=== PATIENT | female | born 1945 | race Caucasian/White ===

== ENCOUNTER 2020-06-22 12:39 | Emergency (ER) | payer MEDICARE, BC, SELFPAY ==
--- NOTE | ~2020-06-22 | XR_ITS ---
EXAMINATION: XR wrist RT min 3V EXAM DATE: 06/22/2020 13:02 INDICATION: Initial encounter following injury, with pain of the right wrist. TECHNIQUE: Right wrist frontal, frontal with ulnar deviation, oblique and lateral projections obtain ed and reviewed. There is no prior study for comparison. FINDINGS: Right wrist scapholunate joint space is maintained. There are no acute fractures or disloca tions identified. There is no subcutaneous gas. The soft tissue is unremarkable. There are no rad iopaque foreign bodies. IMPRESSION: No acute osseous findings. Reviewed, dictated and finalized at location A. IMPRESSION: No acute osseous findings.
[2020-06-22 12:42] VITALS: BP 148/61; PULSE 86; RESP 18; TEMP 36.6; O2SAT 96
--- NOTE | 2020-06-22 13:29 | ED.UPPEXIN ---
HPI - Extremity Injury (Upper) General Chief Complaint: Extremity Injury, Upper Stated Complaint: right wrist pain Time Seen by Provider: 06/22/20 12:52 Source: patient Mode of arrival: ambulatory Limitations: no limitations History of Present Illness HPI narrative: Patient presents for evaluation of bruising swelling and discomfort to the medial aspect of her right wrist that she sustained just prior to arrival after tripping over her feet and falling while in the basement. Patient states that she called for her and he came down immediately and helped her up. Patient states that she is unsure if she is on a blood thinner. Patient denies hitting her head or loss of consciousness changes in vision or hearing or any other areas of pain. Patient has an abrasion to her right lower leg but denies bony tenderness to the area. Patient denies any chest pain, dizziness, syncope, shortness of breath, nausea, vomiting, diarrhea or any other symptoms. Related Data Home Medications Medication Instructions Recorded Confirmed amitriptyline 06/22/20 atorvastatin 06/22/20 bupropion HCl mg PO 06/22/20 furosemide 06/22/20 lisinopril 06/22/20 metoprolol tartrate 06/22/20 niacin [Niaspan Extended-Release] mg PO 06/22/20 Allergies Allergy/AdvReac Type Severity Reaction Status Date / Time No Known Allergies Allergy Unverified 06/22/20 12:46 Review of Systems Review of Systems: Narrative: CONSTITUTIONAL: Denies fever, chills, or sweats. EYES: Denies visual changes, redness, or discharge. ENT: Denies rhinorrhea, congestion, sore throat, or otalgia. CARDIOVASCULAR: Denies chest pain, palpitations, or edema. RESPIRATORY: Denies cough or dyspnea. GASTROINTESTINAL: Denies abdominal pain, nausea, vomiting, or diarrhea. GENITOURINARY: Denies dysuria or hematuria. SKIN: Reports right lower leg abrasion denies rash or itching. MUSCULOSKELETAL: Reports right wrist pain denies back pain, joint pain, or myalgia. NEUROLOGIC: Denies headache, numbness, dizziness, or weakness. PSYCHIATRIC: Denies anxiety or depression. [facility] Past Medical History Medical History (Updated 06/22/20 @ 13:35 by Dale Garcia PA-C) Hypercholesterolemia Hypertension Family History Family History (Updated 02/25/17 @ 23:56 by DOCTOR UNKNOWN) Father Family history of congestive heart failure, Onset Age: 79 Patient's father is Mother Patient's mother is Social History Social History Second hand tobacco smoke exposure: No Alcohol intake: never Gender identity (if verbalized by the patient): Female Exam Narrative: Exam Narrative: GENERAL: Well-appearing, well-nourished, and in no acute distress. HEAD: Normocephalic, atraumatic. EYES: PERRLA and EOMI. ENT: Nares clear, no rhinorrhea or epistaxis. Mucous membranes moist. Oropharynx without tonsillar hypertrophy exudate or other lesions. Bilateral TMs pearly [place] nonbulging NECK: Supple. No adenopathy or masses. CHEST: Clear to auscultation. No respiratory distress. No wheezes rales or rhonchi HEART: Regular rate and rhythm. EXTREMITIES: Bruising noted to dorsal radial aspect of right wrist. Tenderness with palpation to the area. No open wounds or gross deformities noted. There is small scratch-like abrasion noted to the distal aspect of the right lower leg without any bony tenderness with palpation. SKIN: Warm, dry, no rash. NEURO: No focal deficits. Alert and oriented x3. PSYCH: Normal mood and affect. Course Vital Signs Vital signs: Vital Signs Temperature 97.8 F 06/22/20 12:42 Pulse Rate 86 06/22/20 12:42 Respiratory Rate 18 06/22/20 12:42 Blood Pressure 148/61 H 06/22/20 12:42 Pulse Oximetry 96 06/22/20 12:42 Temperature 97.8 F 06/22/20 12:42 Pulse Rate 86 06/22/20 12:42 Respiratory Rate 18 06/22/20 12:42 Blood Pressure 148/61 H 06/22/20 12:42 Pulse Oximetry 96 06/22/20 12:42 MDM - Ext
== END 2020-06-22 13:50 | disposition home or self-care (01) ==
PROVIDERS: Emergency Provider Emergency Medicine
DX: S63.501A Unspecified sprain of right wrist, initial encounter (principal); S66.911A Strain of unspecified muscle, fascia and tendon at wrist and hand level, right hand, initial encounter; E78.00 Pure hypercholesterolemia, unspecified; I10 Essential (primary) hypertension; W01.0XXA Fall on same level from slipping, tripping and stumbling without subsequent striking against object, initial encounter
CPT/HCPCS: 73110; 99283

== ENCOUNTER 2024-03-24 10:54 | Emergency (ER) | payer MEDICARE, BC, SELFPAY ==
--- NOTE | ~2024-03-24 | CT_ITS ---
EXAMINATION: CTA chest PE protocol DATE: 03/24/2024 13:10 INDICATION: Shortness of breath. Pneumonia. Elevated d-dimer. TECHNIQUE: Computed tomography (CT) pulmonary angiogram of the chest was performed with 100 mL Omnipa que-350 intravenous contrast. Additional 3D reconstructions utilizing coronal maximum intensity proje ction (MIP) were performed. Automated exposure control and iterative reconstruction technique were em ployed. The dose-length product was 700.69 mGy-cm. COMPARISON: None FINDINGS: No pulmonary embolism. Moderate emphysema most prominent in the upper lungs. The opacity at the anter ior left lower lung zone seen on the prior chest radiograph corresponds to a prominent paracardial fa t pad and small amount of adjacent lingular atelectasis. Additional minimal streaky atelectasis at th e posterior right lung base. No pneumonia, pulmonary edema, pleural effusion or pneumothorax. Heart s ize is normal. Atherosclerotic coronary artery calcification. Thoracic aorta is normal in caliber wit h no dissection. Small sliding-type hiatal hernia. No pathologically enlarged thoracic lymphadenopath y. And severe bilateral glenohumeral osteoarthritis. IMPRESSION: 1. Moderate emphysema. 2. Opacities concern at the anterolateral left lower lung zone corresponds to a prominent left paraca rdial fat pad and small amount of adjacent lingular compressive atelectasis. No other acute cardiopul monary disease. 3. Small sliding-type hiatal hernia. Reviewed, dictated and finalized at location A. IMPRESSION: 1. Moderate emphysema. 2. Opacities concern at the anterolateral left lower lung zone corresponds to a prominent left paracardial fat pad and small amount of adjacent lingular compr essive atelectasis. No other acute cardiopulmonary disease. 3. Small sliding-type hiatal hernia.
--- NOTE | ~2024-03-24 | CT_ITS ---
EXAMINATION: CT brain wo con DATE: 03/24/2024 11:42 INDICATION: Weakness and syncope TECHNIQUE: Computed tomography (CT) of the head was performed without intravenous contrast. Sagittal and coronal reconstructions were performed. The mA was adjusted according to patient size. Iterative reconstruction technique was employed. The dose-length product was 605.33 mGy-cm. COMPARISON: None FINDINGS: No acute intracranial hemorrhage, acute infarction or abnormal extra axial fluid collection. Small ol d lacunar infarct versus prominent perivascular space at the subinsular right basal ganglia. There is mild scattered white matter hypoattenuation consistent with chronic small vessel ischemic disease. S ymmetric prominence of the sulci consistent with mild to moderate age-appropriate diffuse cerebral vo lume loss. Ventricles are normal and symmetric. No mass/mass effect. The orbits, paranasal sinuses an d mastoid air cells are normal. IMPRESSION: 1. 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 No acute intracranial process. 2. Age-related changes including mild to moderate diffuse volume loss and mild scattered white matter hypoattenuation consistent with chronic small vessel ischemic disease. Reviewed, dictated and finalized at location A. IMPRESSION: 1. Small old lacunar infarct versus prominent perivascular space at the right b robert ganglia. No acute intracranial process. 2. Age-related changes including mild to moderate diffuse volume loss and mild scattered white matter hypoattenuation consistent with chronic small vessel isc hemic disease.
--- NOTE | ~2024-03-24 | XR_ITS ---
EXAMINATION: XR chest 2V DATE: 03/24/2024 11:51 INDICATION: Syncope TECHNIQUE: frontal and lateral views of the chest were obtained. COMPARISON: Chest radiograph dated 04/15/2012 FINDINGS: Opacity at the anterolateral left lower lung zone which obscures the left heart border which is new s angelica the study from 12 years prior. No other airspace opacities, pulmonary edema, pleural effusion or pneumothorax. Aside from the obscured left heart border the cardiomediastinal silhouette is without significant interval change. Severe right glenohumeral and moderate to severe left glenohumeral osteo arthritis. IMPRESSION: 1. Nonspecific new opacities in the anterior and lateral left lower lung zone which obscures the left heart border. Differential would include lingular atelectasis and/or pneumonia or significant increa se in size of a left paracardial fat pad. Recommend radiographic follow-up to resolution or further e valuation with chest CT. Reviewed, dictated and finalized at location A. IMPRESSION: 1. Nonspecific new opacities in the anterior and lateral left lower lung zone w hich obscures the left heart border. Differential would include lingular atelec tasis and/or pneumonia or significant increase in size of a left paracardial fa t pad. Recommend radiographic follow-up to resolution or further evaluation wit h chest CT.
[2024-03-24 10:56] VITALS: BP 121/60; PULSE 57; RESP 16; TEMP 35.8; O2SAT 97
[2024-03-24 11:02] VITALS: RESP 16
--- NOTE | 2024-03-24 11:03 | ECG_ITS ---
SEE SCANNED COPY FOR CONFIRMED REPORT MTDD
[2024-03-24 11:08] LABS: Glucose Point of Care 112 mg/dl (65-105)
[2024-03-24 11:20] LABS: Basophils Percent Auto 0.4 % (0.2-1.2); Eosinophils Absolute Auto 0.1 K/mm3 (0-0.3); Eosinophils Percent Auto 0.5 % (0-4.4); Hematocrit 45.6 % (37.0-47.0); Hemoglobin 14.5 g/dL (12.0-15.0); Immature Granulocyte Absolute 0.06 K/mm3 (0.00-0.031); Immature Granulocyte Percent A 0.6 % (0-0.5); Lymphocytes Absolute Auto 0.77 K/mm3 (0.9-3.2); Lymphocytes Percent Auto 7.9 % (18.3-44.2); Mean Corpuscular HGB Conc 31.8 g/dl (32-36); Mean Corpuscular Volume 94.2 fl (80-100); Monocytes Absolute Auto 0.7 K/mm3 (0.1-0.6); Monocytes Percent Auto 7.5 % (2.6-8.5); Neutrophils Absolute Auto 8.1 K/mm3 (1.3-6.7); Neutrophils Percent Auto 83.1 % (45.5-73.1); Platelet Count Result 216 k/mm3 (150-375); Red Blood Count 4.84 M/mm3 (4.2-5.4); Red Cell Distribution Width 13.8 % (11.5-14.5); White Blood Count 9.8 K/mm3 (4.5-10.0)
--- NOTE | 2024-03-24 11:24 | ED.RECABL ---
HPI - Recheck/Abnormal Lab/Rx General Chief Complaint: Recheck/Abnormal Lab/Rx Stated Complaint: Low BG Time Seen by Provider: 03/24/24 11:07 Source: patient, family and EMS Mode of arrival: EMS Limitations: other (patient does not fully remember incident) History of Present Illness HPI narrative: This is a 78 year old female that presents to the ER for hypoglycemia. Reports she has been feeling unwell since yesterday. Reports chills, fatigue, anorexia. She thought she may be coming down with pneumonia again. She has not eaten anything since yesterday morning and has continued to take her Insulin. She was recently diagnosed with diabetes about a month ago. Reports some dyspnea. Denies fever, cough, chest pain, abdominal pain, vomiting, or dysuria. Related Data Home Medications Medication Instructions Recorded Confirmed amitriptyline 25 mg tablet 06/22/20 atorvastatin 40 mg tablet 06/22/20 bupropion HCl 150 mg 24 hr tablet, mg PO 06/22/20 extended release furosemide 20 mg tablet 06/22/20 lisinopril 5 mg tablet 06/22/20 metoprolol tartrate 25 mg tablet 06/22/20 niacin 1,000 mg tablet,extended mg PO 06/22/20 release 24 hr (Niaspan) Allergies Allergy/AdvReac Type Severity Reaction Status Date / Time No Known Allergies Allergy Unverified 06/22/20 12:46 Review of Systems Review of Systems: CONSTITUTIONAL: Denies fever ENT: Denies rhinorrhea, congestion, sore throat CARDIOVASCULAR: Denies chest pain, palpitations RESPIRATORY: Reports dyspnea. Denies cough GASTROINTESTINAL: Denies abdominal pain, nausea, vomiting GENITOURINARY: Denies dysuria NEUROLOGIC: Reports generalized weakness. All systems reviewed & are unremarkable except as noted in HPI and below [facility] Past Medical History Medical History (Updated 03/24/24 @ 14:23 by Purnima Bernal PA-C) History of COPD History of diabetes mellitus Hypercholesterolemia Hypertension Family History Family History (Updated 02/25/17 @ 23:56 by DOCTOR UNKNOWN) Father Family history of congestive heart failure, Onset Age: 79 Patient's father is Mother Patient's mother is Social History Social History (Updated 03/24/24 @ 11:34 by Purnima Bernal PA-C) Smoking status: Former smoker Second hand tobacco smoke exposure: No Alcohol intake: never Gender identity (if verbalized by the patient): Female Exam Narrative: GENERAL: Elderly, well-nourished, and in no acute distress. HEAD: Normocephalic, atraumatic. EYES: PERRLA and EOMI. ENT: Nares clear, no rhinorrhea or epistaxis. Mucous membranes moist. Oropharynx without tonsillar hypertrophy exudate or other lesions. Bilateral TMs pearly [place] non-bulging NECK: Supple. No adenopathy or masses. No JVD CHEST: Clear to auscultation. No respiratory distress. No wheezes rales or rhonchi HEART: Regular rate and rhythm. No murmur heard. Normal peripheral pulses. ABDOMEN: Soft, nontender, nondistended, normal active bowel sounds. EXTREMITIES: Normal range of motion. No edema. SKIN: Warm, dry, no rash. NEURO: No focal deficits. Alert and oriented x3. CN II-XII grossly intact PSYCH: Normal mood and affect Course Course Emergency Course: Patient and family updated on workup and recommendation for admission. Patient would like to be discharged and continue to monitor her blood sugar at home Vital Signs Vital signs: Vital Signs Temperature 96.4 F L 03/24/24 10:56 Pulse Rate 57 L 03/24/24 10:56 Respiratory Rate 16 03/24/24 10:56 Blood Pressure 121/60 03/24/24 10:56 Pulse Oximetry 97 03/24/24 10:56 Oxygen Delivery Room Air 03/24/24 10:56 Temperature 97.9 F 03/24/24 12:00 Pulse Rate 51 L 03/24/24 12:00 Respiratory Rate 20 03/24/24 12:00 Blood Pressure 124/62 03/24/24 12:00 Pulse Oximetry 98 03/24/24 12:00 Oxygen Delivery Room Air 03/24/24 10:56 MDM - Recheck/Abnormal Lab/Rx MDM Narrative Medical d
[2024-03-24 11:30] VITALS: BP 130/55; PULSE 58; RESP 20; TEMP 36.6; O2SAT 98
[2024-03-24 11:31] LABS: Alanine Aminotransferase 19 U/L (6-35); Albumin Level 4.2 g/dL (3.5-5.1); Alkaline Phosphatase 138 U/L (38-126); Aspartate Amino Transferase 22 U/L (14-36); Bilirubin,Total 0.6 mg/dL (0.2-1.3); Lipase 28 U/L (23-300)
[2024-03-24 11:32] LABS: Anion Gap 8 mmol/L (4-12); Blood Urea Nitrogen 18 mg/dL (7-17); Calcium 9.3 mg/dL (8.4-10.2); Carbon Dioxide 27 mmol/L (22-30); Chloride 105 mmol/L (98-107); Estimated CRCL calculation 40 ml/min; Estimated Glomerular Filt Rate > 60; Glucose 76 mg/dL (65-110); Potassium 3.7 mmol/L (3.4-5.0); Sodium 140 mmol/L (137-145)
[2024-03-24 11:41] LABS: Prothrombin Time 14.1 Seconds (11.1-14.7)
[2024-03-24 11:42] LABS: Partial Thromboplastin Time 24.3 Seconds (22.3-36.8)
[2024-03-24 11:44] LABS: Troponin I < 0.012 ng/mL (0.000-0.034)
[2024-03-24 11:57] LABS: D Dimer 1.16 ug/mL (<0.48)
[2024-03-24 12:00] VITALS: BP 124/62; PULSE 51; RESP 20; TEMP 36.6; O2SAT 98
[2024-03-24 12:10] LABS: Influenza A QL RT-PCR Negative (Negative); Influenza B QL RT-PCR Negative (Negative); RSV RNA, RT-PCR Negative (Negative); SARS-CoV-2 RNA PCR Negative (Negative)
--- NOTE | 2024-03-24 12:24 | PC.NURSE ---
Pt ate 100% of lunch tray. Daughter at bedside.
[2024-03-24 13:50] LABS: Appearance Urine Clear (Clear); Bacteria Urine 4+ /hpf; Bilirubin Urine Negative (Negative); Blood Urine Negative (Negative); Color Urine Yellow (Yellow); Glucose Urine UA 2+ mg/dL (Negative); Ketones Urine Negative (Negative); Leukocyte Esterase Ur 1+ LEU/UL (Negative); Nitrate Urine Positive (Negative); Non Pathogenic Casts 0-2; Protein Urine Trace mg/dL (Negative); RBC Urine 0-2 /hpf (0-2); Squamous Epithelial Cell Urine Occasional /hpf (Few); WBC Urine 51-100 /hpf (0-3); pH Urine 5.5 (5.0-9.0)
[2024-03-24 13:52] LABS: Add Urine Microscopic? YES; Specific Grav Ur 1.046 (1.001-1.035)
[2024-03-24 14:03] LABS: Glucose Point of Care 160 mg/dl (65-105)
[2024-03-24 15:00] VITALS: BP 121/88; PULSE 66; RESP 16; TEMP 36.6; O2SAT 98
== END 2024-03-24 15:02 | disposition home or self-care (01) ==
PROVIDERS: Emergency Medicine; Emergency Provider Physician Assistant
DX: E11.649 Type 2 diabetes mellitus with hypoglycemia without coma (principal); N39.0 Urinary tract infection, site not specified; Z20.822 Contact with and (suspected) exposure to COVID-19; J44.9 Chronic obstructive pulmonary disease, unspecified; E78.00 Pure hypercholesterolemia, unspecified; I10 Essential (primary) hypertension; Z87.01 Personal history of pneumonia (recurrent); Z87.891 Personal history of nicotine dependence; Z79.4 Long term (current) use of insulin; R91.8 Other nonspecific abnormal finding of lung field; K44.9 Diaphragmatic hernia without obstruction or gangrene; R00.1 Bradycardia, unspecified
CPT/HCPCS: 36415; 70450; 71046; 71275; 80048; 80076; 81001; 82948; 83690; 84484; 85025; 85380; 85610; 85730; 87086; 87637; 93005; 96365; 99284; J0696; Q9967